=== PATIENT | female | born 1975 | race Hispanic/Latino ===

== ENCOUNTER 2021-08-24 05:16 | Inpatient (IN) | payer SELFPAY ==
[2021-08-24] MEDS ORDERED: Morphine 4 MG/ML VIAL ONE (05:38)
[2021-08-24] MEDS ORDERED: Ondansetron PF 4 MG/2 ML Vial ONE ×2 (05:38→13:33)
[2021-08-24 06:09] LABS: #Lymphocytes 3.2 thou/uL (1.20-3.40); #Monocytes 1.1 thou/uL (0.11-0.59); #Neutrophils 14.5 thou/uL (1.40-6.50); %Basophils 0.2 % (0.0-1.0); %Lymphocytes 16.1 % (21.0-51.0); %Monocytes 5.6 % (0.0-10.0); %Neutrophils 73.1 % (42.0-75.0); Hemoglobin 13.4 g/dL (12.0-16.0); Mean Corpuscular HGB CONC 35.1 g/dL (32.0-36.0); Mean Corpuscular Hemoglobin 31.7 pg (27.0-31.0); Mean Corpuscular Volume 90.3 fL (78.0-98.0); Mean Platelet Volume 6.8 fL (7.4-10.4); Platelet Count 408 thou/uL (130-400); RBC Distribution Width 11.9 % (11.5-14.5); Red Blood Cell (RBC) Count 4.22 mill/uL (4.20-5.40); White Blood Cell (WBC) Count 19.8 thou/uL (4.8-10.8)
[2021-08-24 06:13] LABS: BHCG - Serum Negative (NEGATIVE); Pregs Control Background? CLEAR/WHITE (CLR/WHITE); Pregs Control Bar Appear? YES (CONTROL BAR)
[2021-08-24 06:17] LABS: Bacteria/HPF None Seen HPF (None Seen); Bilirubin Negative (Negative); Blood, Urine 3+ (Negative); Clarity Clear (Clear); Glucose, Urine (Dipstick) Normal (Negative); Ketone, Urine Negative (Negative); Leukocyte 75 Leu/uL (Negative); Nitrite Negative (Negative); Protein, Urine (Dipstick) Negative (Neg-Trace); Specific Gravity, Urine 1.008 (1.002-1.036); Squamous Epithelial 0-3 HPF (0-3); Urobilinogen Normal mg/dL (Less than 2)
[2021-08-24] MEDS ORDERED: Ketorolac Tromethamine 30 MG/ML VIAL ONE (06:25)
[2021-08-24 06:29] LABS: ALT (SGPT) 46 U/L (8-55); AST (SGOT) 27 U/L (5-34); Albumin 4.5 g/dL (3.5-5.0); Alkaline Phosphatase 77 U/L (40-110); Anion Gap 10 mmol/L (10-20); BUN (Urea Nitrogen) 11 mg/dL (7.0-18.7); Bilirubin, Total 0.4 mg/dL (0.2-1.2); Calc. Creatinine Clearance 0 mL/min (70-130); Calcium 9.3 mg/dL (7.8-10.44); Carbon Dioxide 28 mmol/L (22-29); Chloride 104 mmol/L (98-107); Globulin 3.6 g/dL (2.4-3.5); Glucose 106 mg/dL (70-105); Lipase 38 U/L (8-78); Potassium 3.8 mmol/L (3.5-5.1); Protein, Total 8.1 g/dL (6.0-8.3); Sodium 138 mmol/L (136-145)
[2021-08-24] MEDS ORDERED: metroNIDAZOLE 500 MG/100 ML BAG ONE (07:49)
[2021-08-24] MEDS ORDERED: Pantoprazole 40 MG VIAL ONE (07:50)
[2021-08-24] MEDS ORDERED: Fentanyl 100 MCG/2 ML VIAL ONE ×3 (09:28→17:18)
[2021-08-24 09:29] LABS: SARS-CoV-2 NAA Rapid Test Not Detected (NotDetected)
[2021-08-24 09:45] LABS: INR-International Normal Ratio 0.9; Prothrombin Time 12.3 sec (12.0-14.7)
[2021-08-24] MEDS ORDERED: fentaNYL Citrate/PF 100 MCG/2 ML SYRINGE ONE ×2 (12:35→14:21)
[2021-08-24] MEDS ORDERED: PROPOFOL 200 MG/20 ML VIAL ONE (13:33)
[2021-08-24] MEDS ORDERED: Glycopyrrolate 0.2 MG/ML 5 ML SYRINGE ONE (13:33)
[2021-08-24] MEDS ORDERED: Lidocaine 1% PF 5 ML VIAL ONE (13:33)
[2021-08-24] MEDS ORDERED: PHENYLEPHRINE-NS 100 MCG/ML 10 ML SYRINGE ONE (13:33)
[2021-08-24] MEDS ORDERED: Rocuronium Bromide 10 MG/ML (10ML VIAL) ONE (13:33)
[2021-08-24] MEDS ORDERED: Dexamethasone 20 MG/5 ML VIAL ONE (13:33)
[2021-08-24] MEDS ORDERED: Succinylcholine 200 MG/10 ml SYRINGE FS ONE (13:33)
[2021-08-24] MEDS ORDERED: Ketamine 50 MG/ML (10ML VIAL) ONE (14:21)
[2021-08-24] MEDS ORDERED: Phenylephrine 10 MG/ML VIAL ONE (14:22)
[2021-08-24] MEDS ORDERED: Norepinephrine 4 MG/4 ML VIAL ONE (14:22)
[2021-08-24] MEDS ORDERED: Promethazine HCl 25 MG/ML VIAL IM PRN ×2 (16:01→18:25)
[2021-08-24] MEDS ORDERED: PACU-Morphine 4MG/ML VIAL SLOW IVP PRN (16:01)
[2021-08-24] MEDS ORDERED: Promethazine HCl 25 MG/ML VIAL IVPB PRN (16:01)
[2021-08-24] MEDS ORDERED: Ondansetron HCl/PF 4 MG/2 ML Vial IVP PRN (16:01)
[2021-08-24] MEDS ORDERED: HYDROmorphone 2 MG/ML VIAL SLOW IVP PRN (16:01)
[2021-08-24] MEDS ORDERED: Morphine Sulfate 2 MG/ML SYRINGE SLOW IVP PRN (16:01)
[2021-08-24] MEDS ORDERED: HYDROmorphone 0.5 MG/0.5 ML SYRINGE ONE (16:34)
[2021-08-24] MEDS ORDERED: Morphine 4 MG/ML VIAL SLOW IVP PRN (18:17)
[2021-08-24] MEDS ORDERED: diphenhydrAMINE 25 MG CAP PO PRN (18:25)
[2021-08-24] MEDS ORDERED: Naloxone HCl 0.4 mg/ml Vial IV PRN (18:25)
[2021-08-24] MEDS ORDERED: diphenhydrAMINE 50 MG/ML VIAL IVP PRN (18:25)
[2021-08-24] MEDS ORDERED: diphenhydrAMINE 50 MG/ML VIAL IM PRN (18:25)
[2021-08-24] MEDS ORDERED: Dextrose 5% in Water 1,000 ML IV PRN (18:29)
[2021-08-24] MEDS ORDERED: hydrALAZINE 20 MG/ML VIAL SLOW IVP PRN (18:29)
[2021-08-24] MEDS ORDERED: Dextrose 50% Abboject 50 ML SYRINGE SLOW IVP PRN (18:29)
[2021-08-24] MEDS ORDERED: Communication Order-Pharmacy FS SCH (18:30)
[2021-08-24] MEDS ORDERED: Sodium Chloride 0.9% 1,000 ML IV SCH (18:30)
[2021-08-24] MEDS ORDERED: Acetaminophen 325 MG TAB PO PRN (18:30)
[2021-08-24] MEDS ORDERED: Ondansetron ODT 4 MG TAB SL PRN (18:30)
[2021-08-24] MEDS ORDERED: Ondansetron PF 4 MG/2 ML Vial IVP PRN (18:30)
[2021-08-24] MEDS: metroNIDAZOLE 500 MG in Premix Bag 1 BAG IVPB SCH (20:46)
[2021-08-24] MEDS: Famotidine/PF 20 mg/2ml Vial SLOW IVP SCH (20:46)
[2021-08-24] MEDS: Sodium Chloride 0.9% 1,000 ML IV SCH (20:49)
[2021-08-24 23:28] VITALS: BMI 31.5
[2021-08-25] MEDS: metroNIDAZOLE 500 MG in Premix Bag 1 BAG IVPB SCH ×3 (05:04→21:07)
[2021-08-25 06:14] LABS: Anion Gap 10 mmol/L (10-20); BUN (Urea Nitrogen) 10 mg/dL (7.0-18.7); Calc. Creatinine Clearance 141 mL/min (70-130); Calcium 8.4 mg/dL (7.8-10.44); Carbon Dioxide 25 mmol/L (22-29); Chloride 106 mmol/L (98-107); Glucose 119 mg/dL (70-105); Magnesium 1.6 mg/dL (1.6-2.6); Sodium 137 mmol/L (136-145)
[2021-08-25 06:31] LABS: Band 30 % (5-11); Hemoglobin 11.7 g/dL (12.0-16.0); Hypochromia SLIGHT = 6-15 cells (100X) (0-5/hpf); Lymphocytes 2 % (21-51); MDiff Complete? YES; Mean Corpuscular HGB CONC 33.1 g/dL (32.0-36.0); Mean Corpuscular Hemoglobin 31.7 pg (27.0-31.0); Mean Platelet Volume 6.7 fL (7.4-10.4); Monocytes 4 % (0-10); Neutrophil 64 % (42-75); Platelet Count 323 thou/uL (130-400); Platelet Morphology Comment Appears Adequate; RBC Distribution Width 11.7 % (11.5-14.5); Red Blood Cell (RBC) Count 3.69 mill/uL (4.20-5.40); White Blood Cell (WBC) Count 20.8 thou/uL (4.8-10.8)
[2021-08-25] MEDS: Sodium Chloride 0.9% 1,000 ML IV SCH ×2 (06:54→08:55)
[2021-08-25] MEDS ORDERED: Magnesium 2 GM/50 ML(in water) 2 GM in Premix Bag 1 BAG IVPB SCH (08:00)
[2021-08-25] MEDS ORDERED: Sodium Phosphate 15 MMOL in Sodium Chloride 0.9% 250 ML 250 ML IVPB SCH (08:00)
[2021-08-25] MEDS: Famotidine/PF 20 mg/2ml Vial SLOW IVP SCH (08:56)
[2021-08-25] MEDS: Enoxaparin Sodium 40 MG/0.4 ML SYRINGE SC SCH (21:07)
[2021-08-25] MEDS: Pantoprazole 40 MG VIAL IVP SCH (21:07)
[2021-08-26] MEDS ORDERED: Ketorolac Tromethamine 30 MG/ML VIAL ONE (03:35)
[2021-08-26] MEDS: HYDROmorphone 10 mg/100 ml CADD IVPB PRN (03:38)
[2021-08-26] MEDS: metroNIDAZOLE 500 MG in Premix Bag 1 BAG IVPB SCH ×3 (03:38→21:07)
[2021-08-26] MEDS: Sodium Chloride 0.9% 1,000 ML IV SCH ×5 (03:42→21:08)
[2021-08-26] MEDS ORDERED: Ketorolac Tromethamine 30 MG/ML VIAL IVP SCH (05:45)
[2021-08-26 09:11] LABS: Magnesium 1.7 mg/dL (1.6-2.6); Phosphorus 2.1 mg/dL (2.3-4.7)
[2021-08-26] MEDS: Pantoprazole 40 MG VIAL IVP SCH ×2 (10:10→21:10)
[2021-08-26] MEDS ORDERED: Magnesium 2 GM/50 ML(in water) 2 GM in Premix Bag 1 BAG IVPB SCH (11:00)
[2021-08-26] MEDS ORDERED: Sodium Phosphate 30 MMOL in Sodium Chloride 0.9% 250 ML 250 ML IVPB SCH (12:00)
[2021-08-26] MEDS: Enoxaparin Sodium 40 MG/0.4 ML SYRINGE SC SCH (21:10)
[2021-08-27] MEDS: metroNIDAZOLE 500 MG in Premix Bag 1 BAG IVPB SCH ×3 (03:37→20:57)
[2021-08-27] MEDS: Sodium Chloride 0.9% 1,000 ML IV SCH ×2 (06:38→13:44)
[2021-08-27] MEDS: Pantoprazole 40 MG VIAL IVP SCH ×2 (09:07→20:58)
[2021-08-27 09:31] LABS: #Eosinphils 0.3 thou/uL (0.0-0.7); #Lymphocytes 2.5 thou/uL (1.20-3.40); #Monocytes 0.7 thou/uL (0.11-0.59); #Neutrophils 10.6 thou/uL (1.40-6.50); %Basophils 0.1 % (0.0-1.0); %Eosinophils 2.3 % (0.0-10.0); %Lymphocytes 17.7 % (21.0-51.0); %Monocytes 5.2 % (0.0-10.0); %Neutrophils 74.6 % (42.0-75.0); Hemoglobin 12.5 g/dL (12.0-16.0); Mean Corpuscular HGB CONC 33.5 g/dL (32.0-36.0); Mean Corpuscular Hemoglobin 31.3 pg (27.0-31.0); Mean Corpuscular Volume 93.3 fL (78.0-98.0); Mean Platelet Volume 6.6 fL (7.4-10.4); Platelet Count 389 thou/uL (130-400); RBC Distribution Width 11.4 % (11.5-14.5); Red Blood Cell (RBC) Count 4.01 mill/uL (4.20-5.40); White Blood Cell (WBC) Count 14.2 thou/uL (4.8-10.8)
[2021-08-27 09:42] LABS: Anion Gap 14 mmol/L (10-20); BUN (Urea Nitrogen) 6 mg/dL (7.0-18.7); Calc. Creatinine Clearance 151 mL/min (70-130); Calcium 8.3 mg/dL (7.8-10.44); Carbon Dioxide 21 mmol/L (22-29); Chloride 100 mmol/L (98-107); Glucose 76 mg/dL (70-105); Magnesium 1.7 mg/dL (1.6-2.6); Potassium 3.1 mmol/L (3.5-5.1); Sodium 132 mmol/L (136-145)
[2021-08-27 09:54] LABS: Phosphorus 3.1 mg/dL (2.3-4.7)
[2021-08-27] MEDS: Ondansetron PF 4 MG/2 ML Vial IVP PRN (10:38)
[2021-08-27] MEDS ORDERED: Magnesium 2 GM/50 ML(in water) 2 GM in Premix Bag 1 BAG IVPB SCH (11:30)
[2021-08-27] MEDS ORDERED: Potassium Phosphate 30 MMOL in Sodium Chloride 0.9% 250 ML 250 ML IVPB SCH (12:00)
[2021-08-27] MEDS: HYDROmorphone 10 mg/100 ml CADD IVPB PRN (13:20)
[2021-08-27] MEDS: Enoxaparin Sodium 40 MG/0.4 ML SYRINGE SC SCH (20:58)
[2021-08-28 05:37] LABS: #Basophils 0.1 thou/uL (0.0-0.2); #Eosinphils 0.6 thou/uL (0.0-0.7); #Lymphocytes 2.2 thou/uL (1.20-3.40); #Monocytes 0.7 thou/uL (0.11-0.59); #Neutrophils 8.4 thou/uL (1.40-6.50); %Basophils 0.6 % (0.0-1.0); %Monocytes 5.5 % (0.0-10.0); %Neutrophils 70.8 % (42.0-75.0); Mean Corpuscular HGB CONC 33.5 g/dL (32.0-36.0); Mean Corpuscular Hemoglobin 31.5 pg (27.0-31.0); Mean Corpuscular Volume 94.2 fL (78.0-98.0); Mean Platelet Volume 6.3 fL (7.4-10.4); Platelet Count 410 thou/uL (130-400); RBC Distribution Width 11.5 % (11.5-14.5); Red Blood Cell (RBC) Count 3.81 mill/uL (4.20-5.40); White Blood Cell (WBC) Count 11.9 thou/uL (4.8-10.8)
[2021-08-28 06:05] LABS: Anion Gap 14 mmol/L (10-20); BUN (Urea Nitrogen) 10 mg/dL (7.0-18.7); Calc. Creatinine Clearance 154 mL/min (70-130); Calcium 8.1 mg/dL (7.8-10.44); Carbon Dioxide 22 mmol/L (22-29); Chloride 103 mmol/L (98-107); Glucose 80 mg/dL (70-105); Magnesium 1.8 mg/dL (1.6-2.6); Phosphorus 3.1 mg/dL (2.3-4.7); Sodium 135 mmol/L (136-145)
[2021-08-28] MEDS: Sodium Chloride 0.9% 1,000 ML IV SCH ×2 (07:35→07:36)
[2021-08-28] MEDS: metroNIDAZOLE 500 MG in Premix Bag 1 BAG IVPB SCH ×3 (07:37→15:44)
[2021-08-28] MEDS ORDERED: Magnesium 2 GM/50 ML(in water) 2 GM in Premix Bag 1 BAG IVPB SCH (07:45)
[2021-08-28] MEDS ORDERED: Sodium Phosphate 15 MMOL in Sodium Chloride 0.9% 250 ML 250 ML IVPB SCH (07:45)
[2021-08-28] MEDS: Pantoprazole 40 MG VIAL IVP SCH ×2 (08:14→20:23)
[2021-08-28] MEDS ORDERED: traMADol HCl 50 MG TAB PO PRN (09:42)
[2021-08-28] MEDS: Acetaminophen 500 MG TAB PO SCH ×3 (10:34→22:20)
[2021-08-28] MEDS: Ibuprofen 200 MG TAB PO SCH ×2 (14:45→22:23)
[2021-08-28] MEDS: Senokot S 8.6-50 MG TAB PO SCH (20:22)
[2021-08-28] MEDS: Enoxaparin Sodium 40 MG/0.4 ML SYRINGE SC SCH (20:22)
[2021-08-28] MEDS: traMADol HCl 50 MG TAB PO PRN (20:22)
[2021-08-28] MEDS: Ondansetron PF 4 MG/2 ML Vial IVP PRN (22:20)
[2021-08-29] MEDS: metroNIDAZOLE 500 MG in Premix Bag 1 BAG IVPB SCH ×3 (00:14→17:52)
[2021-08-29] MEDS: Acetaminophen 500 MG TAB PO SCH (05:12)
[2021-08-29] MEDS: traMADol HCl 50 MG TAB PO PRN (05:13)
[2021-08-29] MEDS: Ibuprofen 200 MG TAB PO SCH (06:01)
[2021-08-29 06:21] LABS: #Eosinphils 0.7 thou/uL (0.0-0.7); #Lymphocytes 1.8 thou/uL (1.20-3.40); #Monocytes 0.5 thou/uL (0.11-0.59); #Neutrophils 6.8 thou/uL (1.40-6.50); %Basophils 0.2 % (0.0-1.0); %Eosinophils 6.8 % (0.0-10.0); %Lymphocytes 18.2 % (21.0-51.0); %Monocytes 5.5 % (0.0-10.0); %Neutrophils 69.3 % (42.0-75.0); Hemoglobin 12.3 g/dL (12.0-16.0); Mean Corpuscular HGB CONC 34.3 g/dL (32.0-36.0); Mean Corpuscular Hemoglobin 31.3 pg (27.0-31.0); Mean Corpuscular Volume 91.3 fL (78.0-98.0); Mean Platelet Volume 6.1 fL (7.4-10.4); Platelet Count 450 thou/uL (130-400); RBC Distribution Width 11.6 % (11.5-14.5); Red Blood Cell (RBC) Count 3.93 mill/uL (4.20-5.40); White Blood Cell (WBC) Count 9.8 thou/uL (4.8-10.8)
[2021-08-29 07:10] LABS: Anion Gap 13 mmol/L (10-20); BUN (Urea Nitrogen) 6 mg/dL (7.0-18.7); Calc. Creatinine Clearance 173 mL/min (70-130); Calcium 8.6 mg/dL (7.8-10.44); Carbon Dioxide 21 mmol/L (22-29); Chloride 105 mmol/L (98-107); Glucose 101 mg/dL (70-105); Magnesium 1.7 mg/dL (1.6-2.6); Phosphorus 2.8 mg/dL (2.3-4.7); Potassium 3.4 mmol/L (3.5-5.1); Sodium 136 mmol/L (136-145)
[2021-08-29] MEDS ORDERED: Magnesium 2 GM/50 ML(in water) 2 GM in Premix Bag 1 BAG IVPB SCH (07:45)
[2021-08-29] MEDS ORDERED: Potassium Phosphate 30 MMOL in Sodium Chloride 0.9% 250 ML 250 ML IVPB SCH (07:45)
[2021-08-29] MEDS: Ondansetron PF 4 MG/2 ML Vial IVP PRN (08:14)
[2021-08-29] MEDS: Pantoprazole 40 MG VIAL IVP SCH (08:21)
[2021-08-29] MEDS: Polyethylene Glycol 3350 17 GM Packet PO SCH (08:29)
[2021-08-29] MEDS: Senokot S 8.6-50 MG TAB PO SCH ×2 (08:29→20:56)
[2021-08-29] MEDS ORDERED: Acetaminophen 500 MG TAB PO SCH (12:00)
[2021-08-29] MEDS: Acetaminophen 500 MG TAB PO PRN (18:01)
[2021-08-29] MEDS: Enoxaparin Sodium 40 MG/0.4 ML SYRINGE SC SCH (20:56)
[2021-08-30] MEDS: Acetaminophen 500 MG TAB PO PRN ×2 (01:25→22:38)
[2021-08-30] MEDS ORDERED: MD-Gastroview 120 ML BOT ONE (09:37)
[2021-08-30] MEDS: Polyethylene Glycol 3350 17 GM Packet PO SCH (11:58)
[2021-08-30] MEDS: Senokot S 8.6-50 MG TAB PO SCH ×2 (11:58→20:48)
[2021-08-30] MEDS: Enoxaparin Sodium 40 MG/0.4 ML SYRINGE SC SCH (20:42)
[2021-08-31] MEDS: Polyethylene Glycol 3350 17 GM Packet PO SCH (10:26)
[2021-08-31] MEDS: Senokot S 8.6-50 MG TAB PO SCH (10:26)
[2021-08-31] MEDS: Acetaminophen 500 MG TAB PO PRN (14:50)
[2021-08-31 16:15] VITALS: BP 118/87; TEMP 98.4
== END 2021-08-31 16:55 | disposition home or self-care (01) | DRG 742 ==
LOC: ERS 05:16 → SDC 12:00 → SJJU 20:27
PROVIDERS: ADMIT Student in an Organized Health Care Education/Training Program; ATTEND Surgery
PROC: 0UB10ZZ Excision of Left Ovary, Open Approach (ICD-10-PCS; principal; 2021-08-24)
DX: D27.1 Benign neoplasm of left ovary (principal); K65.9 Peritonitis, unspecified; Z20.822 Contact with and (suspected) exposure to COVID-19; K76.0 Fatty (change of) liver, not elsewhere classified; K74.69 Other cirrhosis of liver; E87.6 Hypokalemia; E83.42 Hypomagnesemia; E83.39 Other disorders of phosphorus metabolism; Z88.0 Allergy status to penicillin
CPT/HCPCS: 36415; 74176; 74250; 76705; 80048; 80053; 81003; 81015; 81241; 83690; 83735; 84100; 84145; 84703; 85025; 85610; 85730; 86850; 86900; 86901; 87086; 88307; 93005; 96365; 96367; 96375; C1776; C9113; J1100; J1170; J1200; J1650; J1885; J1956; J2270; J2370; J2405; J2704; J3010; J3475; J7050; S0028; U0002; U0003; U0005

== ENCOUNTER 2021-09-03 07:08 | Emergency (ER) | payer SELFPAY ==
[2021-09-03] MEDS ORDERED: Bacitracin 1 PK ONE (08:05)
== END 2021-09-03 08:20 | disposition home or self-care (01) ==
LOC: ERS 07:08
DX: T81.41XA Infection following a procedure, superficial incisional surgical site, initial encounter (principal); E11.9 Type 2 diabetes mellitus without complications
CPT/HCPCS: 99283

== ENCOUNTER 2021-10-13 06:30 | Observation (INO) | payer SELFPAY ==
[2021-10-13 07:28] LABS: #Eosinphils 0.5 thou/uL (0.0-0.7); #Lymphocytes 3.6 thou/uL (1.20-3.40); #Monocytes 0.7 thou/uL (0.11-0.59); #Neutrophils 6.8 thou/uL (1.40-6.50); %Basophils 0.4 % (0.0-1.0); %Eosinophils 4.5 % (0.0-10.0); %Lymphocytes 30.6 % (21.0-51.0); %Monocytes 6.2 % (0.0-10.0); %Neutrophils 58.4 % (42.0-75.0); Hemoglobin 12.2 g/dL (12.0-16.0); Mean Corpuscular HGB CONC 32.9 g/dL (32.0-36.0); Mean Corpuscular Hemoglobin 30.5 pg (27.0-31.0); Mean Corpuscular Volume 92.8 fL (78.0-98.0); Mean Platelet Volume 6.9 fL (7.4-10.4); Platelet Count 407 thou/uL (130-400); RBC Distribution Width 11.8 % (11.5-14.5); White Blood Cell (WBC) Count 11.7 thou/uL (4.8-10.8)
[2021-10-13] MEDS ORDERED: Ondansetron PF 4 MG/2 ML Vial ONE (07:30)
[2021-10-13] MEDS ORDERED: Morphine 4 MG/ML VIAL ONE ×2 (07:30→08:46)
[2021-10-13 07:45] LABS: BHCG - Serum Negative (NEGATIVE); Pregs Control Background? CLEAR/WHITE (CLR/WHITE); Pregs Control Bar Appear? YES (CONTROL BAR)
[2021-10-13 07:50] LABS: ALT (SGPT) 16 U/L (8-55); AST (SGOT) 15 U/L (5-34); Albumin 4.3 g/dL (3.5-5.0); Alkaline Phosphatase 80 U/L (40-110); Anion Gap 16 mmol/L (10-20); BUN (Urea Nitrogen) 13 mg/dL (7.0-18.7); Bilirubin, Total 0.3 mg/dL (0.2-1.2); Calc. Creatinine Clearance 0 mL/min (70-130); Calcium 9.3 mg/dL (7.8-10.44); Carbon Dioxide 20 mmol/L (22-29); Chloride 105 mmol/L (98-107); Estimated GFR 110; Globulin 3.1 g/dL (2.4-3.5); Glucose 103 mg/dL (70-105); Lipase 37 U/L (8-78); Protein, Total 7.4 g/dL (6.0-8.3); Sodium 137 mmol/L (136-145)
[2021-10-13] MEDS ORDERED: Iopamidol 370 76% 100 ML VIAL ONE (08:00)
[2021-10-13] MEDS ORDERED: Pantoprazole 40 MG VIAL ONE (08:46)
[2021-10-13] MEDS ORDERED: Acetaminophen 325 MG TAB PO PRN (10:30)
[2021-10-13] MEDS ORDERED: Ondansetron PF 4 MG/2 ML Vial IVP PRN (10:30)
[2021-10-13] MEDS ORDERED: Morphine 2 MG/ML VIAL SLOW IVP PRN (10:33)
[2021-10-13] MEDS ORDERED: HumaLOG 300 UNITS/3 ML VIAL SC PRN (10:37)
[2021-10-13] MEDS ORDERED: Dextrose 50% Abboject 50 ML SYRINGE SLOW IVP PRN (10:37)
[2021-10-13] MEDS ORDERED: Dextrose 5% in Water 1,000 ML IV PRN (10:37)
[2021-10-13] MEDS ORDERED: Pantoprazole 40 MG VIAL IVP SCH (10:45)
[2021-10-13] MEDS: Sodium Chloride 0.9% 1,000 ML IV SCH ×2 (10:50→17:48)
[2021-10-13 14:20] LABS: Bilirubin Negative (Negative); Blood, Urine Negative (Negative); Clarity Clear (Clear); Glucose, Urine (Dipstick) Normal (Negative); Ketone, Urine Negative (Negative); Leukocyte Negative Leu/uL (Negative); Nitrite Negative (Negative); Protein, Urine (Dipstick) Negative (Neg-Trace); Urobilinogen Normal mg/dL (Less than 2)
[2021-10-13 14:22] LABS: Pregnancy Test - Urine (BHCG) Negative (Negative); Pregu Control Background? CLEAR/WHITE (CLR/WHITE); Pregu Control Bar Appear? YES (CONTROL BAR); Specific Gravity Greater than 1.060 (1.002-1.036); Specific Gravity, Urine Greater than 1.060 (1.002-1.036)
[2021-10-13 16:28] VITALS: BMI 31.8
[2021-10-13] MEDS: Pantoprazole 40 MG VIAL IVP SCH (20:54)
[2021-10-14] MEDS: Sodium Chloride 0.9% 1,000 ML IV SCH ×2 (03:24→11:20)
[2021-10-14 06:32] LABS: #Basophils 0.1 thou/uL (0.0-0.2); #Eosinphils 0.9 thou/uL (0.0-0.7); #Lymphocytes 3.2 thou/uL (1.20-3.40); #Monocytes 0.5 thou/uL (0.11-0.59); #Neutrophils 5.1 thou/uL (1.40-6.50); %Basophils 0.6 % (0.0-1.0); %Lymphocytes 32.5 % (21.0-51.0); %Monocytes 5.5 % (0.0-10.0); %Neutrophils 52.5 % (42.0-75.0); Hemoglobin 11.9 g/dL (12.0-16.0); Mean Corpuscular HGB CONC 33.5 g/dL (32.0-36.0); Mean Corpuscular Hemoglobin 31.3 pg (27.0-31.0); Mean Corpuscular Volume 93.5 fL (78.0-98.0); Mean Platelet Volume 6.9 fL (7.4-10.4); Platelet Count 364 thou/uL (130-400); RBC Distribution Width 11.9 % (11.5-14.5); Red Blood Cell (RBC) Count 3.79 mill/uL (4.20-5.40); White Blood Cell (WBC) Count 9.7 thou/uL (4.8-10.8)
[2021-10-14 07:00] LABS: Anion Gap 15 mmol/L (10-20); BUN (Urea Nitrogen) 14 mg/dL (7.0-18.7); Calc. Creatinine Clearance 143 mL/min (70-130); Calcium 8.3 mg/dL (7.8-10.44); Carbon Dioxide 19 mmol/L (22-29); Chloride 106 mmol/L (98-107); Estimated GFR 111; Glucose 90 mg/dL (70-105); Potassium 3.8 mmol/L (3.5-5.1); Sodium 136 mmol/L (136-145)
[2021-10-14] MEDS: Pantoprazole 40 MG VIAL IVP SCH (07:49)
[2021-10-14 14:36] VITALS: BP 131/84; TEMP 98.5
== END 2021-10-14 14:42 | disposition home or self-care (01) ==
LOC: ERS 06:30 → ERHOLD 09:43 → T4-B 15:46
PROVIDERS: ADMIT Internal Medicine; ATTEND Internal Medicine
DX: K27.9 Peptic ulcer, site unspecified, unspecified as acute or chronic, without hemorrhage or perforation (principal); E11.9 Type 2 diabetes mellitus without complications; J45.909 Unspecified asthma, uncomplicated; Z20.822 Contact with and (suspected) exposure to COVID-19; Z88.0 Allergy status to penicillin; Z88.6 Allergy status to analgesic agent
CPT/HCPCS: 36415; 36416; 71045; 74177; 80048; 80053; 81003; 81025; 83690; 84484; 84703; 85025; 93005; 96361; 96374; 96375; 96376; C9113; G0378; J2270; J2405; J7050; Q9967; U0003; U0005

== ENCOUNTER 2022-04-09 03:19 | Emergency (ER) | payer SELFPAY ==
[2022-04-09 04:18] LABS: #Basophils 0.1 thou/uL (0.0-0.2); #Lymphocytes 3.7 thou/uL (1.20-3.40); #Monocytes 0.7 thou/uL (0.11-0.59); #Neutrophils 5.7 thou/uL (1.40-6.50); %Basophils 0.6 % (0.0-1.0); %Eosinophils 9.2 % (0.0-10.0); %Monocytes 6.4 % (0.0-10.0); %Neutrophils 50.9 % (42.0-75.0); Hemoglobin 12.5 g/dL (12.0-16.0); Mean Corpuscular HGB CONC 33.5 g/dL (32.0-36.0); Mean Corpuscular Hemoglobin 29.4 pg (27.0-31.0); Mean Corpuscular Volume 87.9 fl (78.0-98.0); Platelet Count 383 10x3/uL (130-400); RBC Distribution Width 12.5 % (11.5-14.5); Red Blood Cell (RBC) Count 4.26 mill/uL (4.20-5.40); White Blood Cell (WBC) Count 11.1 10x3/uL (4.8-10.8)
[2022-04-09 04:41] LABS: ALT (SGPT) 26 U/L (8-55); AST (SGOT) 20 U/L (5-34); Albumin 4.3 g/dL (3.5-5.0); Alkaline Phosphatase 80 U/L (40-110); Anion Gap 12 mmol/L (10-20); BUN (Urea Nitrogen) 21 mg/dL (7.0-18.7); Bilirubin, Total 0.3 mg/dL (0.2-1.2); Calc. Creatinine Clearance 0 mL/min (70-130); Calcium 9.4 mg/dL (7.8-10.44); Carbon Dioxide 23 mmol/L (22-29); Chloride 106 mmol/L (98-107); Estimated GFR 108; Globulin 3.6 g/dL (2.4-3.5); Glucose 97 mg/dL (70-105); Potassium 4.2 mmol/L (3.5-5.1); Protein, Total 7.9 g/dL (6.0-8.3); Sodium 137 mmol/L (136-145)
[2022-04-09 05:41] LABS: Bacteria/HPF 1+ HPF (None Seen); Bilirubin Negative (Negative); Blood, Urine 1+ (Negative); Clarity Clear (Clear); Glucose, Urine (Dipstick) Normal (Negative); Ketone, Urine Negative (Negative); Leukocyte 250 Leu/uL (Negative); Nitrite Negative (Negative); Protein, Urine (Dipstick) Negative (Neg-Trace); Squamous Epithelial 0-3 HPF (0-3); Urobilinogen Normal mg/dL (Less than 2); WBC/HPF Greater than 50 HPF (0-3); pH, Urine 5.5 (5.0-9.0)
[2022-04-09 05:42] LABS: Pregnancy Test - Urine (BHCG) Negative (Negative); Pregu Control Background? CLEAR/WHITE (CLR/WHITE); Pregu Control Bar Appear? YES (CONTROL BAR)
== END 2022-04-09 06:55 | disposition home or self-care (01) ==
LOC: ERS 03:19
DX: N10 Acute pyelonephritis (principal); R31.9 Hematuria, unspecified; E11.9 Type 2 diabetes mellitus without complications
CPT/HCPCS: 36415; 80053; 81003; 81015; 81025; 85025; 87077; 87086; 87186; 99283

== ENCOUNTER 2022-04-18 15:23 | Emergency (ER) | payer SELFPAY ==
[2022-04-18] MEDS ORDERED: Ketorolac Tromethamine 30 MG/ML VIAL ONE (16:30)
== END 2022-04-18 17:04 | disposition home or self-care (01) ==
LOC: ERS 15:23
DX: M10.9 Gout, unspecified (principal); M25.522 Pain in left elbow; E11.9 Type 2 diabetes mellitus without complications
CPT/HCPCS: 96372; 99283; J1885

== ENCOUNTER 2022-08-05 08:19 | Emergency (ER) | payer SELFPAY ==
[2022-08-05] MEDS ORDERED: predniSONE 20 MG TAB ONE (09:07)
[2022-08-05] MEDS ORDERED: Ibuprofen 800 MG TAB ONE (09:07)
[2022-08-05] MEDS ORDERED: Albuterol 200 PUFF INH ONE (09:07)
[2022-08-05 09:29] LABS: SARS-CoV-2 NAA Rapid Test Not Detected (NotDetected)
== END 2022-08-05 11:22 | disposition home or self-care (01) ==
LOC: ERS 08:19
DX: J11.1 Influenza due to unidentified influenza virus with other respiratory manifestations (principal); J45.909 Unspecified asthma, uncomplicated; E11.9 Type 2 diabetes mellitus without complications; Z20.822 Contact with and (suspected) exposure to COVID-19
CPT/HCPCS: 93005; J7512

== ENCOUNTER 2023-09-24 19:09 | Emergency (ER) | payer SELFPAY | END 2023-09-24 22:30 | disposition home or self-care (01) | LOC: ERS 19:09 | DX: M79.10 Myalgia, unspecified site (principal); E11.9 Type 2 diabetes mellitus without complications | CPT/HCPCS: 99283 ==